=== PATIENT | female | born 1950 | race Caucasian/White ===

== ENCOUNTER 2021-05-17 17:18 | Emergency (ER) | payer MEDICARE, OTHER ==
[2021-05-17 17:29] VITALS: BP 175/77
[2021-05-17] MEDS ORDERED: DEXAMETHASONE 10 MG/ML VIAL PO STA (18:47)
--- NOTE | 2021-05-17 18:51 | ED Physician Documentation ---
History of Present Illness - Stated complaint Stated Complaint: HEADACHE/LT SIDE EAR & JAW PX, RASH - Chief complaint Chief Complaint: General - History obtained from History obtained from: Patient - History of Present Illness Timing: How many days ago (3-4) Pain level max: 5 Pain level now: 3 - Additonal information Additional information: Patient is a 71-year-old female who presents to the emergency department stating that she has had 3 to 4 days of pain on the left side of her face, occasional sharp "zinging pains" to the left temporal area. Occasionally she has pain in her left shoulder and today she noticed a slight rash on her chest. She states she talked to the [facility] nurse advice line who recommended she come here for evaluation. History of TMJ. She states she did have shingles on the right side of her face 1 time. No fevers. No chills. Tylenol resolves the pain. Nothing makes it worse Review of Systems Constitutional: denies: Fever, Chills Ears: reports: Ear pain (Left ear pain occasionally) Nose: denies: Rhinorrhea / runny nose, Congestion Respiratory: denies: Cough GI: denies: Nausea, Vomiting, Diarrhea Skin: denies: Rash Musculoskeletal: denies: Neck pain, Back pain Neurologic: denies: Headache PD PAST MEDICAL HISTORY - Past Medical History Past Medical History: Yes Cardiovascular: High cholesterol Other Past Medical History: TMJ syndrome - Past Surgical History Past Surgical History: No - Present Medications Home Medications: Ambulatory Orders Medication Instructions Recorded Confirmed Simvastatin [Zocor] 20 mg PO 05/17/21 predniSONE [Deltasone] 40 mg PO DAILY #10 tablet 05/17/21 - Allergies Allergies/Adverse Reactions: Allergies Allergy/AdvReac Type Severity Reaction Status Date / Time amoxicillin Allergy Rash Verified 05/17/21 17:29 PD ED PE NORMAL - Vitals Vital signs reviewed: Yes - General General: Alert and oriented X 3, No acute distress - HEENT HEENT: PERRL, Moist mucous membranes, Other (Crepitus over the left TMJ. No facial swelling. No rashes in the scalp. No rashes on the neck. Normal ear exam. Normal intraoral exam. No dental caries) - Neck Neck: Supple, no meningeal sign, No bony TTP, No JVD, No bruit - Cardiac Cardiac: RRR - Respiratory Respiratory: No respiratory distress, Clear bilaterally - Abdomen Abdomen: Normal bowel sounds, Soft, Non tender, Non distended - Derm Derm: Warm and dry, Other (2 small patches of macular exanthem on the anterior chest wall, left side approximately 1.5 cm in diameter. No vesicles or pustules) - Neuro Neuro: Alert and oriented X 3, furnace roaster 2-12 intact, No motor deficit, No sensory deficit, Normal speech Eye Opening: Spontaneous Motor: Obeys Commands Verbal: Oriented GCS Score: 15 - Psych Psych: Normal mood, Normal affect Results - Vitals Vitals: Vital Signs - 24 hr 05/17/21 17:23 Temperature 36.3 C L Heart Rate 70 Respiratory 18 Rate Blood Pressure 175/77 H O2 Saturation 98 Oxygen O2 Source Room air PD MEDICAL DECISION MAKING - ED course Complexity details: reviewed results, re-evaluated patient, considered differential, d/w patient ED course: Unclear etiology the patient's symptoms. Possible TMJ inflammation? We will trial her on steroids and see if this improves. She also appears to have a small nonspecific dermatitis on the anterior chest wall. Does not appear consistent with shingles. There is no pain with this. No vesicles or pustules. The steroid should treat this as well. With the Motrin had resolved her pain recently. The symptoms are not consistent with trigeminal neuralgia. Patient counseled regarding signs and symptoms for which I believe and urgent re- evaluation would be necessary. Patient with good understanding of and agreement to plan and is comfortable going home at this time This document was made in part using voice recognition software. While efforts are made to proofread this document, sound alike and grammatical errors may occur. Departure - Departure Disposition: 01 Home, Self Care Condition: Good Instructions: ED Dermatitis Non Specific Rash, ED TMJ Syndrome Follow-Up: your,doctor in 1 week [Other] Prescriptions: predniSONE [Deltasone] 40 mg PO DAILY #10 tablet Comments: Your prescription was sent to [facility] in [place]. The cause of your symptoms is unclear, they could be related to your TMJ. There is no visible rash on your scalp. You do have a slight rash on your chest, this does not appear to be shingles. We will see if your symptoms improve or worsen over the next few days, if they worsen, return for further evaluation, I expect they will improve with the steroids. Discharge Date/Time: 05/17/21 19:20
[2021-05-17] MEDS ORDERED: CHERRY SYRUP 10 ML UDC PO ONE (19:02)
== END 2021-05-17 19:20 | disposition home or self-care (01) ==
LOC: ED 17:18
DX: L30.9 Dermatitis, unspecified (principal)
CPT/HCPCS: 99282; A9270

== ENCOUNTER 2021-05-20 11:42 | Emergency (ER) | payer MEDICARE ==
[2021-05-20 12:05] VITALS: BP 161/75
--- NOTE | 2021-05-20 12:50 | ED Physician Documentation ---
PD HPI SKIN - Stated complaint Stated Complaint: RASH BODY - Chief complaint Chief Complaint: Wound - History obtained from History obtained from: Patient - Additional information Additional information: 71-year-old woman who has had some pain of the left TMJ for about a week now and some soreness of the left shoulder for the last maybe 5 days. She was seen by my partner had a nonspecific rash and was started on steroids which have helped the TMJ quite a bit. The rash has progressed and that is on the left upper chest. Review of Systems Constitutional: reports: Fatigue Nose: reports: Reviewed and negative Cardiac: denies: Palpitations Respiratory: denies: Dyspnea, Cough PD PAST MEDICAL HISTORY - Past Medical History Past Medical History: Yes Cardiovascular: High cholesterol - Past Surgical History Past Surgical History: No - Present Medications Home Medications: Ambulatory Orders Medication Instructions Recorded Confirmed Simvastatin [Zocor] 20 mg PO 05/17/21 predniSONE [Deltasone] 40 mg PO DAILY #10 tablet 05/17/21 Valacyclovir HCl [Valtrex] 1,000 mg PO TID #30 tablet 05/20/21 predniSONE [Deltasone] 20 mg PO [id number] #3 tab 05/20/21 - Allergies Allergies/Adverse Reactions: Allergies Allergy/AdvReac Type Severity Reaction Status Date / Time amoxicillin Allergy Rash Verified 05/20/21 12:05 - Social History Does the pt smoke?: No Smoking Status: Never smoker PD ED PE NORMAL - Vitals Vital signs reviewed: Yes - General General: Alert and oriented X 3, No acute distress - HEENT HEENT: Other (She is quite a bit of crepitance in the TMJs, no facial rash.) - Neck Neck: Supple, no meningeal sign, No bony TTP - Derm Derm: Other (She has shingles on the upper anterior left chest) - Neuro Neuro: Alert and oriented X 3, Normal speech Results - Vitals Vitals: Vital Signs - 24 hr 05/20/21 12:02 Temperature 36.0 C L Heart Rate 59 L Respiratory 16 Rate Blood Pressure 161/75 H O2 Saturation 100 Oxygen O2 Source Room air PD MEDICAL DECISION MAKING - ED course ED course: The other day the rash was not felt to be consistent with shingles and she actually showed me a picture of it and it really actually did not look like shingles then, since then the rash has progressed and is more typical shingles. Departure - Departure Disposition: 01 Home, Self Care Clinical Impression: Shingles Qualifiers: Herpes zoster complications: without complications Qualified Code(s): B02.9 - Zoster without complications Condition: Good Record reviewed to determine appropriate education?: Yes Instructions: ED Shingles Prescriptions: predniSONE [Deltasone] 20 mg PO [id number] #3 tab Valacyclovir HCl [Valtrex] 1,000 mg PO TID #30 tablet Comments: I sent your prescription electronically to [facility] in [place]. Return for new or worsening symptoms. Continue the current dose of steroids until gone, then start the lower dose for a few more days.
[2021-05-20] MEDS: valACYclovir 500 MG TABLET PO STA (12:57)
== END 2021-05-20 12:57 | disposition home or self-care (01) ==
LOC: ED 11:42
DX: B02.9 Zoster without complications (principal)
CPT/HCPCS: 99282; A9270

== ENCOUNTER 2023-11-21 14:15 | Outpatient (CLI) | payer MEDICARE ==
--- NOTE | 2023-11-21 16:06 | Mammography Report ---
BILATERAL DIGITAL SCREENING MAMMOGRAM 3D/2D: 11/21/2023 CLINICAL: Routine screening. Additional films were requested but not obtained. There are scattered areas of fibroglandular density (category b / 25%-50% glandular tissue). No significant masses, calcifications, or other findings are seen in either breast. IMPRESSION: NEGATIVE There is no mammographic evidence of malignancy. A 1 year screening mammogram is recommended. Based on the Tyrer Cuzick model (a risk assessment model) the patient's lifetime risk is 8.7% and her 10 year risk is 6.5%. According to the ACR, ACS, and NCCN guidelines, an annual breast MRI exam reese g with mammogram is recommended if the patient's lifetime risk is 20% or greater. This exam was interpreted at Station ID: [id number]. NOTE: For mammograms, a report in lay terms will be sent to the patient. Approximately 15% of breast malignancies will not be visualized mammographically. In the management of a palpable breast mass, a negative mammogram must not discourage biopsy of a clinically suspicious lesion. Electronically Signed By: Андрей rankin/karlee:11/21/2023 15:35:12 letter sent: No_Letter ACR BI-RADS Category 1: Negative PARENCHYMAL PATTERN: (A) - The breast(s) demonstrate(s) scattered fibroglandular densities. BI-RADS CATEGORY: (1) - 1 RECOMMENDATION: (ANNUAL) - Recommend routine annual screening mammography. [id number] 1 year screening LATERALITY: (B)
== END 2023-11-21 14:16 | disposition home or self-care (01) ==
LOC: DI 14:15
DX: Z12.31 Encounter for screening mammogram for malignant neoplasm of breast (principal)